=== PATIENT | male | born 1945 | race Caucasian/White ===

== ENCOUNTER 2018-09-13 09:45 | Emergency (ER) | payer MEDICARE ==
[~2018-09-13] VITALS: Ht 170.2 cm; Wt 87.1 kg
[~2018-09-13 09:45] MED LIST: ASPI-252 PO; ASPI-482 PO; ATEN25TA PO; FLUT1DIS3 IH; HYDR12.575 PO; OMEP40CA5 PO; SIMV20TA PO; TERA10CA3 PO
[2018-09-13 10:02] VITALS: BP 154/74
[2018-09-13] MEDS ORDERED: NAPROXEN 250 MG TABLET PO STA (10:18)
--- NOTE | 2018-09-13 10:23 | PHYS DOC ---
Past Medical History Past Surgical History: No Surgical History Alcohol Use: Occasionally Drug Use: None Adult General Chief Complaint Chief Complaint: LOWER BACK PAIN OR INJURY HPI HPI Patient is a 73 year old male who presents with left low back pain with radiation into the back of his left thigh. This started 3 days ago. Patient was working a small snowplow on the back of his tractor with recurrent twisting motion as he backed up to make sure of where he was going. There has been no loss of bowel or bladder control. Increased pain with movement. No other trauma. No fever. Patient has a history of skin cancer having had to be excised in his for head. No recent changes in weight.[] Review of Systems Review of Systems Constitutional: Denies fever or chills [] Eyes: Denies change in visual acuity, redness, or eye pain [] HENT: Denies nasal congestion or sore throat [] Respiratory: Denies cough or shortness of breath [] Cardiovascular: No chest pain or palpitations[] GI: Denies abdominal pain, nausea, vomiting, bloody stools or diarrhea [] : Denies dysuria or hematuria [] Musculoskeletal: See history of present illness[] Integument: Denies rash or skin lesions [] Neurologic: Denies headache, focal weakness or sensory changes [] Endocrine: Denies polyuria or polydipsia [] All other systems were reviewed and found to be within normal limits, except as documented in this note. Current Medications Current Medications Current Medications Medications (Trade) Dose Ordered Sig/Virgilio Start Time Stop Time Status Last Admin Dose Admin Cyclobenzaprine HCl (Flexeril) 10 mg 1X ONCE 09/13/18 10:30 09/13/18 10:31 DC 09/13/18 10:30 10 MG Naproxen (Naprosyn) 250 mg 1X STAT 09/13/18 10:18 09/13/18 10:22 DC 09/13/18 10:29 250 MG Prednisone (Prednisone) 50 mg 1X ONCE 09/13/18 10:30 09/13/18 10:31 DC 09/13/18 10:29 50 MG Allergies Allergies Allergies Coded Allergies Type Severity Reaction Last Updated Verified No Known Drug Allergies 08/20/14 No Physical Exam Physical Exam Constitutional: Well developed, well nourished, no acute distress, non-toxic appearance. [] HENT: Normocephalic, atraumatic, bilateral external ears normal, oropharynx moist, no oral exudates, nose normal. [] Eyes: PERRLA, EOMI, conjunctiva normal, no discharge. [] Neck: Normal range of motion, no tenderness, supple, no stridor. [] Cardiovascular:Heart rate regular rhythm, no murmur [] Lungs & Thorax: Bilateral breath sounds clear to auscultation [] Abdomen: Bowel sounds normal, soft, no tenderness, no masses, no pulsatile masses. [] Skin: Warm, dry, no erythema, no rash. [] Back: Tenderness of the left paraspinal musculature. Decreased active range of motion. Patient has normal gait. no CVA tenderness. [] Extremities: No tenderness, no cyanosis, no clubbing, ROM intact, no edema. [] Neurologic: Alert and oriented X 3, normal motor function, normal sensory function, no focal deficits noted. [] Psychologic: Affect normal, judgement normal, mood normal. [] Current Patient Data Vital Signs Vital Signs Date Time Temp Pulse Resp B/P (MAP) Pulse Ox O2 Delivery O2 Flow Rate FiO2 09/13/18 10:02 97.5 50 16 154/74 (100) 96 Room Air 97.5 Lab Values Laboratory Tests Test 09/13/18 10:20 Urine Collection Type Unknown Urine Color Yellow Urine Clarity Clear Urine pH 5.5 Urine Specific Jerome 1.010 Urine Protein Negative mg/dL (NEG-TRACE) Urine Glucose (UA) Negative mg/dL (NEG) Urine Ketones (Stick) Negative mg/dL (NEG) Urine Blood Negative (NEG) Urine Nitrite Negative (NEG) Urine Bilirubin Negative (NEG) Urine Urobilinogen Dipstick 0.2 mg/dL (0.2 mg/dL) Urine Leukocyte Esterase Negative (NEG) Urine RBC 0 /HPF (0-2) Urine WBC Occ /HPF (0-4) Urine Squamous Epithelial Cells Few /LPF Urine Bacteria 0 /HPF (0-FEW) Urine Hyaline Casts Few /HPF Urine Mucus Slight /LPF EKG EKG [] Radiology/Procedures Radiology/Procedures Lumbar spine, 3 views, 09/13/2018: HISTORY: Back pain, injury There is a minimal lumbar scoliosis. The lumbar vertebral heights are well-maintained. There is mild narrowing of several disc spaces with moderate scattered marginal spurring. There are moderate degenerative changes involving the facet joints in the lower lumbar spine. No fracture or subluxation is evident. Aortic calcific plaquing is noted. IMPRESSION: 1. Moderate multilevel degenerative change. 2. No acute bony abnormality is detected.[] Course & Med Decision Making Course & Med Decision Making Pertinent Labs and Imaging studies reviewed. (See chart for details) ED course and medical decision making: Patient arrived, was placed in bed, tolerated exam well. Patient was transported to and from radiology with any complications. Patient felt significant relief with the pain medicine. There is no evidence of an acute fracture, no evidence of abdominal aortic aneurysm dissection based on physical exam. No evidence of cauda equina syndrome. No evidence of neurologic or vascular compromise. No evidence of inadequate pain control. No evidence of pyelonephritis nor kidney stone. Will place the patient on anti-inflammatories as well as muscle relaxers to help with pain management as an outpatient. Thus findings and plan with patient and family who voiced understanding. All questions were answered.[] Dragon Disclaimer Dragon Disclaimer This electronic medical record was generated, in whole or in part, using a voice recognition dictation system. Departure Departure Impression: Primary Impression: Low back pain Disposition: HOME, SELF-CARE Condition: IMPROVED Referrals: BERENICE WASHINGTON MD (PCP) Follow-up in 2 days Patient Instructions: Back Pain, Adult, Low Back Sprain with Rehab[facility]Sports[facility], Sciatica with Rehab[facility]Sports[facility] Additional Instructions: Follow-up with your regular doctor in 2 days. Return to the ER if worsening pain , loss of bowel or bladder control, fever of more than 101, or any other concerns. Scripts Prednisone (PREDNISONE) 50 Mg Tablet 50 MG PO DAILY for 5 Days, #5 TAB Prov: ISMAEL CASE DO 09/13/18 Orphenadrine Citrate (ORPHENADRINE CITRATE) 100 Mg Tablet.er 100 MG PO BID, #20 TAB.SR Prov: ISMAEL CASE DO 09/13/18 Meloxicam (MELOXICAM) 7.5 Mg Tablet 7.5 MG PO DAILY, #20 TAB Prov: ISMAEL CASE DO 09/13/18 Problem Qualifiers Primary Impression: Low back pain Chronicity: acute Back pain laterality: left Sciatica presence: with sciatica Sciatica laterality: sciatica of left side Qualified Codes: M54.42 - Lumbago with sciatica, left side ISMAEL CASE DO Sep 13, 2018 10:23
[2018-09-13] MEDS ORDERED: predniSONE 10 MG TABLET PO ONE (10:30)
[2018-09-13] MEDS ORDERED: CYCLOBENZAPRINE 10 MG TABLET. PO ONE (10:30)
[2018-09-13] MEDS ORDERED: SIMV40TA3 PO (10:45)
[2018-09-13] MEDS ORDERED: CALC600T4 PO (10:49)
[2018-09-13] MEDS ORDERED: POTA10TA12 PO (10:49)
[2018-09-13] MEDS ORDERED: MULT-735 PO (10:49)
[2018-09-13] MEDS ORDERED: OMEG-165 PO (10:49)
[2018-09-13] MEDS ORDERED: FINA5TAB4 PO (10:49)
[2018-09-13] MEDS ORDERED: FURO40TA4 PO (10:49)
[2018-09-13] MEDS ORDERED: CHOL100013 PO (10:49)
[2018-09-13] MEDS ORDERED: BIOT1CAP3 PO (10:49)
[2018-09-13 11:03] LABS: BILIRUBIN,URINE NEGATIVE (NEG); CLARITY,URINE CLEAR; COLOR,URINE YELLOW; NITRITE,URINE NEGATIVE (NEG); PH,URINE 5.5; PROTEIN,URINE NEGATIVE (NEG-TRACE); UROBILINOGEN,URINE 0.2 mg/dL (0.2 mg/dL)
[2018-09-13 11:10] LABS: HYALINE CASTS, URINE FEW /HPF; SQUAMOUS EPITHELIAL CELL,UR FEW /LPF
[2018-09-13 11:11] LABS: BACTERIA,URINE 0 /HPF (0-FEW); RBC,URINE 0 /HPF (0-2); WBC,URINE OCC /HPF (0-4)
--- NOTE | 2018-09-13 11:21 | RAD ---
Lumbar spine, 3 views, 09/13/2018: HISTORY: Back pain, injury There is a minimal lumbar scoliosis. The lumbar vertebral heights are well-maintained. There is mild narrowing of several disc spaces with moderate scattered marginal spurring. There are moderate degenerative changes involving the facet joints in the lower lumbar spine. No fracture or subluxation is evident. Aortic calcific plaquing is noted. IMPRESSION: 1. Moderate multilevel degenerative change. 2. No acute bony abnormality is detected. Electronically signed by: Jarvis Mehta MD (09/13/2018 11:18 AM) [facility]
[2018-09-13] MEDS ORDERED: PRED50TA PO (11:51)
[2018-09-13] MEDS ORDERED: ORPH100T PO (11:51)
[2018-09-13] MEDS ORDERED: MELO7.5T29 PO (11:51)
== END 2018-09-13 11:58 | disposition home or self-care (01) ==
LOC: ER 09:45
DX: M54.5 Low back pain (principal); X50.1XXA Overexertion from prolonged static or awkward postures, initial encounter; Y93.89 Activity, other specified; Y92.89 Other specified places as the place of occurrence of the external cause; Y99.8 Other external cause status
CPT/HCPCS: 72100; 81001; 99284; J7512